=== PATIENT | female | born 2000 | race Caucasian/White ===

== ENCOUNTER 2019-01-10 10:56 | Emergency (ER) | payer OTHER ==
--- NOTE | 2019-01-10 11:26 | ED ---
Lower Extremity - HPI Summary HPI Summary: Pt. is a 18 y.o female who presents to the ER for a right knee injury that occurred yesterday. Pt. states she was practicing taekwondo yesterday and twisted right knee and fell. Able to ambulate with pain. Symptoms are mild in severity. Denies associated sxs of numbness, tingling or weakness. - History of Current Complaint Chief Complaint: EDExtremityLower Stated Complaint: RT KNEE INJURY PER PT Time Seen by Provider: 01/10/19 11:24 Hx Obtained From: Patient Pain Intensity: 4 - Allergies/Home Medications Allergies/Adverse Reactions: Allergies Allergy/AdvReac Type Severity Reaction Status Date / Time No Known Allergies Allergy Verified 01/10/19 11:20 Home Medications: Home Medications NK [No Home Medications Reported] 01/10/19 [History Confirmed 01/10/19] PMH/Surg Hx/FS Hx/Imm Hx Previously Healthy: Yes Infectious Disease History: No Infectious Disease History: Denies: Traveled Outside the [place] in Last 30 Days - Family History Known Family History: Positive: Non-Contributory - Social History Occupation: Student Lives: Dormitory/Roommates Review of Systems Positive: Other - Right knee injury Skin: Negative Neurological: Negative Negative: Weakness, Paresthesia, Numbness All Other Systems Reviewed And Are Negative: Yes Physical Exam Triage Information Reviewed: Yes Vital Signs On Initial Exam: Initial Vitals Temp Pulse Resp BP Pulse Ox 98.8 F 76 18 127/84 99 01/10/19 11:08 01/10/19 11:08 01/10/19 11:08 01/10/19 11:08 01/10/19 11:08 Vital Signs Reviewed: Yes Appearance: Positive: Well-Appearing - Pt. sitting in chair in NAD. Skin: Positive: Warm, Dry Head/Face: Positive: Normal Head/Face Inspection Eyes: Positive: Normal, EOMI Neck: Positive: Supple Musculoskeletal: Positive: Other - Small medial effusion to right knee. No increase in laxity. Good pedial pulse. No proximal or distal injuries. No breaks in the skin. Neurological: Positive: Normal, CN Intact II-III Psychiatric: Positive: Affect/Mood Appropriate Procedures - Splinting Right Lower Extremity Pre-Made Type: knee immobilizer Pre-Proc Neuro Vasc Exam: normal Post-Proc Neuro Vasc Exam: normal Diagnostics - Vital Signs Vital Signs Temp Pulse Resp BP Pulse Ox 01/10/19 11:08 98.8 F 76 18 127/84 99 - Laboratory Lab Statement: Any lab studies that have been ordered have been reviewed, and results considered in the medical decision making process. Lower Extremity Course/Dx - Course Course Of Treatment: Patient presenting for at least isolated knee injury. X- rays per radiology are negative for acute findings. Given patient's pain and twisting injury, Will place in knee immobilizer and crutches. To ice and elevate. Will follow-up with orthopedics for further evaluation of pain persists. Tylenol or Motrin for pain as directed. Activity as tolerated. Patient understands and agrees with plan. - Diagnoses Differential Diagnosis/HQI/PQRI: Positive: Fracture (Closed), Sprain, Strain Provider Diagnoses: Knee sprain Discharge - Sign-Out/Discharge Documenting (check all that apply): Patient Departure Patient Received Moderate/Deep Sedation with Procedure: No - Discharge Plan Condition: Good Disposition: HOME Patient Education Materials: Knee Sprain (ED) Referrals: [facility] [Outside] Landon Simons MD [Medical Doctor] - Additional Instructions: Schedule a follow up appointment with [facility] and orthopedics if pain persist for further evaluation Use immobilizer and crutches Ice and elevate intermittently Ibuprofen for pain as directed Activity as tolerated Return to ER if symptoms change or worsen - Billing Disposition and Condition Condition: GOOD Disposition: Home
[2019-01-10 12:43] VITALS: BP 104/69
== END 2019-01-10 12:42 | disposition home or self-care (01) ==
LOC: ED 10:56
DX: S83.91XA Sprain of unspecified site of right knee, initial encounter (principal); Y93.75 Activity, martial arts
CPT/HCPCS: 99282

== ENCOUNTER 2019-07-08 03:13 | Emergency (ER) | payer BC ==
[2019-07-08] MEDS ORDERED: predniSONE TAB* 20 MG PO ONE (03:54)
[2019-07-08] MEDS ORDERED: Albuterol 0.5% CONC NEB.SOL* 5 MG/ML 20 ml BOT INH ONE (03:54)
--- NOTE | 2019-07-08 03:56 | ED ---
Shortness of Breath - HPI Summary HPI Summary: This patient is a 18 year old F presenting to [facility] with a chief complaint of SOB since 07/07/18. Pt reports she previously had trouble breathing two weeks ago, but it only lasted about a day. Pt used her friends inhaler which relieved her symptoms. Then it reoccurred on 07/07/18. She reports she was at a tournament and she just sat around in a gym all day. The SOB worsens with physical activity and with deep breaths. Patient reports cough with phlegm. Patient denies fever, abdominal pain, nausea, vomiting, loss of appetite. Pt has PMHx of asthma. - History of Current Complaint Chief Complaint: EDShortnessOfBreath Time Seen by Provider: 07/08/19 03:47 Hx Obtained From: Patient Onset/Duration: Gradual Onset, Still Present Timing: Intermittent Episodes Lasting: Dyspnea At: Rest Aggravating Factors: Deep Breaths Alleviating Factors: Bronchodilators Associated Signs & Symptoms: Cough (Productive) - Allergy/Home Medications Allergies/Adverse Reactions: Allergies Allergy/AdvReac Type Severity Reaction Status Date / Time No Known Allergies Allergy Verified 01/10/19 11:20 PMH/Surg Hx/FS Hx/Imm Hx Respiratory History: Reports: Hx Asthma Sensory History: Denies: Hx Legally Blind, Hx Deafness Opthamlomology History: Denies: Hx Legally Blind EENT History: Denies: Hx Deafness - Surgical History Surgery Procedure, Year, and Place: ACL injury - Immunization History Date of Tetanus Vaccine: utd Date of Influenza Vaccine: fall 2017 Infectious Disease History: No Infectious Disease History: Denies: Traveled Outside the [place] in Last 30 Days - Family History Known Family History: Positive: Other - [place], [place] - Social History Alcohol Use: Rare Substance Use Type: Reports: None Smoking Status (MU): Never Smoked Tobacco Review of Systems Negative: Fever, Other - loss of appetite Positive: Shortness Of Breath, Cough Negative: Abdominal Pain, Vomiting, Nausea All Other Systems Reviewed And Are Negative: Yes Physical Exam - Summary Physical Exam Summary: Appearance: Well-appearing, Well-nourished, lying in bed comfortably Skin: Warm, dry, no obvious rash Eyes: sclera anicteric, no conjunctival pallor ENT: mucous membranes moist, pharynx appears normal Neck: Supple, nontender Respiratory: pt appears tachypnic, her inspiratory phase is impaired her expiratory phase is prolonged on forced expiration with diffuse associated wheezing Cardiovascular: Normal S1, S2. No murmurs. Normal distal pulses in tibial and radial bilaterally. Abdomen: Soft, nontender, normal active bowel sounds present Musculoskeletal: Normal, Strength/ROM Intact Neurological: A&Ox3, awake and alert, mentation is normal, speech is fluent and appropriate Psychiatric: affect is normal, does not appear anxious or depressed Triage Information Reviewed: Yes Vital Signs On Initial Exam: Initial Vitals Temp Pulse Resp BP Pulse Ox 97.5 F 113 18 126/91 90 07/08/19 03:14 07/08/19 03:14 07/08/19 03:14 07/08/19 03:14 07/08/19 03:14 Vital Signs Reviewed: Yes Procedures - Sedation Patient Received Moderate/Deep Sedation with Procedure: No Diagnostics - Vital Signs Vital Signs Temp Pulse Resp BP Pulse Ox 07/08/19 03:37 84 20 131/78 90 07/08/19 03:36 17 07/08/19 03:14 97.5 F 113 18 126/91 90 - Laboratory Result Diagrams: 07/08/19 04:06 07/08/19 04:06 Lab Statement: Any lab studies that have been ordered have been reviewed, and results considered in the medical decision making process. - Radiology CXR Radiology Interpretation Completed By: ED Physician Summary of Radiographic Findings: CXR reveals, per ED physician, no acute processes. Pending official radiology report. - EKG 0320 Cardiac Rate: NL EKG Rhythm: Sinus Rhythm Summary of EKG Findings: EKG at 0320 reveals NSR at 85 BPM, P waves, QRS complex , and T waves are within normal limits, T waves and intervals are normal, no ischemic changes. This is a normal EKG. ED Physician has reviewed and interpreted this EKG. Re-Evaluation - Re-Evaluation First Eval Re-Evaluation Time: 06:15 Comment: Discussed results and plan of care with pt. Course/Dx - Course Course Of Treatment: This patient is a 18 year old F presenting to [facility] with a chief complaint of SOB since 07/07/18. Pt reports she previously had trouble breathing two weeks ago, but it only lasted about a day. Pt used her friends inhaler which relieved her symptoms. Then it reoccurred on 07/07/18. She reports she was at a tournament and she just sat around in a gym all day. The SOB worsens with physical activity and with deep breaths. Patient reports cough with phlegm. Patient denies fever, abdominal pain, nausea, vomiting, loss of appetite. Pt has PMHx of asthma. Pt appears tachypnic, her inspiratory phase is impaired her expiratory phase is prolonged on forced expiration with diffuse associated wheezing. Blood work obtained. WBC is 11.4, and Glucose is 123. UA obtained. CXR reveals, per ED physician, no acute processes. Pending official radiology report. EKG at 0320 reveals NSR at 85 BPM, P waves, QRS complex, and T waves are within normal limits, T waves and intervals are normal, no ischemic changes. This is a normal EKG. In the ED course the patient was given albuterol , and deltasone. Patient improved on this therapy with marked improvement in aeration, though she still has mild end expiratory wheezing, and will be discharged. The patient is agreeable with this plan. - Diagnoses Provider Diagnoses: Asthma exacerbation, Bronchitis Discharge ED - Sign-Out/Discharge Documenting (check all that apply): Patient Departure - Discharge - Discharge Plan Condition: Good Disposition: HOME Prescriptions: Albuterol HFA INHALER* [Ventolin HFA Inhaler*] 2 puff INH Q4H PRN #1 mdi PRN Reason: Wheezing predniSONE TAB* [Deltasone 20 MG TAB*] 40 mg PO DAILY 5 Days #10 tab Patient Education Materials: Asthma (ED), Acute Bronchitis (ED) Referrals: [facility] [Outside] - If Needed - Billing Disposition and Condition Condition: GOOD Disposition: Home - Attestation Statements Document Initiated by Beverley: Yes Documenting Scribe: Nayla Arreguin Provider For Whom Beverley is Documenting (Include Credential): Murtaza Dumont MD Scribe Attestation: Nayla Villalpando scribed for Murtaza Dumont MD on 07/09/19 at 0330. Scribe Documentation Reviewed: Yes Provider Attestation: The documentation as recorded by the Nayla curry accurately reflects the service I personally performed and the decisions made by me, Murtaza Dumont MD Status of Scribe Document: Viewed
[2019-07-08 04:12] LABS: ABS Basophils 0.1 10^3/ul (0-0.2); ABS Lymphocytes 2.6 10^3/ul (1.0-4.8); ABS Monocytes 0.7 10^3/ul (0-0.8); Eosinophil % 9.1 %; Hematocrit 41 % (35-47); Hemoglobin 13.8 g/dL (12.0-16.0); Lymphocyte % 22.6 %; Mean Corpuscular HGB Conc 34 g/dL (31-36); Mean Corpuscular Hemoglobin 28 pg (27-31); Mean Corpuscular Volume 84 fL (80-97); Mean Platelet Volume 8.9 fL (7.4-10.4); Platelet Count 269 10^3/uL (150-450); Red Blood Count 4.87 10^6 /uL (3.70-4.87); Red Cell Distribution Width 13 % (10-15); White Blood Count 11.4 10^3/uL (3.5-10.8)
[2019-07-08 04:30] LABS: Albumin 4.5 g/dL (3.2-5.2); Albumin/Globulin Ratio 1.7 (1-3); BUN/Creatinine Ratio 15.5 (8-20); Calcium 10.3 mg/dL (8.6-10.3); EGFR African American 105.7 (>60); EGFR Non-African American 87.3 (>60); Globulin 2.7 g/dL (2-4); Potassium 4.2 mmol/L (3.5-5.0); Total Bilirubin 0.5 mg/dL (0.2-1.0); Total Protein 7.2 g/dL (6.4-8.9)
[2019-07-08 06:18] VITALS: BP 117/63
== END 2019-07-08 06:26 | disposition home or self-care (01) ==
LOC: ED 03:13
DX: J45.901 Unspecified asthma with (acute) exacerbation (principal); I49.9 Cardiac arrhythmia, unspecified
CPT/HCPCS: 36415; 71046; 80053; 85025; 85379; 93005; 99283; J7512; J7611

== ENCOUNTER 2019-07-18 03:33 | Emergency (ER) | payer BC ==
[2019-07-18] MEDS ORDERED: Albuterol/Ipratropium NEB.SOL* Albuterol 2.5 MG/Ipratropium 0.5 MG 3 ML INH ONE ×2 (03:47→04:42)
--- NOTE | 2019-07-18 04:05 | ED ---
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 No fever, nausea. Symptoms aggravated by nothing. Symptoms alleviated by nothing. Hx of asthma. States she had similar episode 1.5 weeks ago, was seen in the ED, dx asthma exacerbation and bronchitis, given rx prednisone and Albuterol inhaler which she has been taking minimal relief. Has not tried taking any other medications. LNMP 06/19/19. No smoking, alcohol, drugs. - History of Current Complaint Chief Complaint: EDShortnessOfBreath Stated Complaint: SOB PER PT Time Seen by Provider: 07/18/19 04:02 Hx Obtained From: Patient Onset/Duration: Lasting Days - 1, Still Present Timing: Constant Aggravating Symptoms: Nothing Alleviating Symptoms: Nothing Associated Signs and Symptoms: Positive: Negative - fever, nausea - Allergy/Home Medications Allergies/Adverse Reactions: Allergies Allergy/AdvReac Type Severity Reaction Status Date / Time No Known Allergies Allergy Verified 07/18/19 03:41 PMH/Surg Hx/FS Hx/Imm Hx Respiratory History: Reports: Hx Asthma Sensory History: Denies: Hx Legally Blind, Hx Deafness Opthamlomology History: Denies: Hx Legally Blind - Surgical History Surgery Procedure, Year, and Place: ACL repair 04/14/19 - Immunization History Date of Tetanus Vaccine: utd Date of Influenza Vaccine: fall 2017 Infectious Disease History: No Infectious Disease History: Denies: Traveled Outside the [place] in Last 30 Days - Family History Known Family History: Positive: Cardiac Disease - [place], Other - [place] - Social History Alcohol Use: None Substance Use Type: Reports: None Smoking Status (MU): Never Smoked Tobacco Review of Systems Negative: Fever Positive: Shortness Of Breath, Cough, Other - wheezing Negative: Nausea All Other Systems Reviewed And Are Negative: Yes Physical Exam - Summary Physical Exam Summary: General: Thin FEMALE. No significant distress upon arrival. HEENT: Normocephalic, Atraumatic. Eyes: Conjuctiva normal, PERRL. Ears: TMs within normal limits. Nares: (-) discharge, (-) erythema. Oropharynx: Clear, mucous membranes moist, (-) exudates. Neck: Soft, FROM, (-) lymphadenopathy, (-) thyromegaly, (-) JVD. Cardiovascular: Normal sinus rhythm, (-) murmur. Lungs: She had fair air exchange with mild tight wheezing throughout Abdomen: Soft, non-tender, non-distended, (-) organomegaly, normal bowel sounds. Back: (-) CVA tenderness Extremities: No edema. Skin: Warm, dry, (-) rash. Neuro: Alert and oriented x3, no focal deficits. Psychiatric: Mood normal, affect normal. Triage Information Reviewed: Yes Vital Signs On Initial Exam: Initial Vitals Temp Pulse Resp BP Pulse Ox 97.9 F 104 25 168/92 94 07/18/19 03:34 07/18/19 03:34 07/18/19 03:34 07/18/19 03:34 07/18/19 03:34 Vital Signs Reviewed: Yes Procedures - Sedation Patient Received Moderate/Deep Sedation with Procedure: No Diagnostics - Vital Signs Vital Signs Temp Pulse Resp BP Pulse Ox 07/18/19 03:54 94 18 99 07/18/19 03:34 97.9 F 104 25 168/92 94 - Laboratory Lab Statement: Any lab studies that have been ordered have been reviewed, and results considered in the medical decision making process. Re-Evaluation - Re-Evaluation First Eval Re-Evaluation Time: 05:02 Change: Improved Comment: I have discussed results with the patient and sx have resolved after breathing treatments. Will start patient on steroids. Discussed symptoms that warrant immediate return to ED. Asthma Course/Dx - Course Course Of Treatment: 18-year-old female presenting with shortness of breath and wheezing. Asthma exacerbation. She had similar symptoms last week and was seen here. States her albuterol inhaler at home was not helping. Patient had significant relief after 2 nebulizer treatments. Started on a short burst of steroids. Continue albuterol inhaler as needed. Follow-up with PCP. Follow up sooner for any worsening symptoms. - Diagnoses Provider Diagnoses: Asthma exacerbation Discharge ED - Sign-Out/Discharge Documenting (check all that apply): Patient Departure - Discharge - Discharge Plan Condition: Stable Disposition: HOME Prescriptions: predniSONE [Prednisone 20 MG TAB] 40 mg PO DAILY 5 Days #10 tablet Patient Education Materials: Asthma (ED) Referrals: [facility] [Provider Group] - 3 Days Additional Instructions: Please follow up with [facility] within 3 days. Please return to Emergency Department for any new or worsening symptoms - Billing Disposition and Condition Condition: STABLE Disposition: Home - Attestation Statements Document Initiated by Scribe: Yes Documenting Scribe: Lauryn Merrill Provider For Whom Scribe is Documenting (Include Credential): Nola Julien MD Scribe Attestation: ILauryn, scribed for Nola Julien MD on 07/18/19 at 0515. Scribe Documentation Reviewed: Yes Provider Attestation: The documentation as recorded by the scribeLauryn accurately reflects the service I personally performed and the decisions made by me, Nola Julien MD Status of Scribe Document: Viewed
[2019-07-18] MEDS ORDERED: predniSONE TAB* 20 MG PO ONE (05:00)
[2019-07-18 05:10] VITALS: BP 123/70
== END 2019-07-18 05:10 | disposition home or self-care (01) ==
LOC: ED 03:33
DX: J45.901 Unspecified asthma with (acute) exacerbation (principal)
CPT/HCPCS: 99283; A9270-GY; J7512

== ENCOUNTER 2019-07-18 07:19 | Observation (INO) | payer BC ==
[2019-07-18] MEDS ORDERED: methylPREDNISolone 125 MG* 2 ML VIAL ONE (07:24)
[2019-07-18] MEDS ORDERED: NS 0.9% 1000 ML** 1,000 ML IV ONE (07:25)
[2019-07-18] MEDS ORDERED: methylPREDNISolone 125 MG* 2 ML VIAL IV ONE (07:26)
[2019-07-18] MEDS ORDERED: Magnesium Sulfate 2 GM IV* 2 GM/50 ML BAG IVPB ONE (07:37)
--- NOTE | 2019-07-18 07:39 | ED ---
Shortness of Breath - HPI Summary HPI Summary: Patient is a 18 y/o F presenting to the ED via EMS for a chief complaint of shortness of breath. On EMS arrival at [facility], patient was wheezing and was in respiratory distress. Patient was given 3 A+A nebs, a dose of EpiPen IM and given a CPAP treatment which patient is receiving on arrival to the ED. Patient is complaining of chest pain with chest tightness, productive cough, and abdominal pain. Patient states the shortness of breath has improved with the CPAP treatment, but the pain she is reporting has remained at the same intensity. Patient also states the wheezing has resolved. Patient denies calf pain, calf swelling, nausea, or vomiting. Patient was previously seen at [facility] approximately [address] Nola Julien for asthma exacerbation. Pt was given 2 nebs and 40mg prednisone at this time. Patients symptoms resolved before being discharged but states returned after walking stairs to her dorm. Pt with h/o recent bronchitis and has been using MDI. pt states several years ago was treated at ED for similar sx. Denies tobacco, denies inhalants, no vaping. Not . Patient denies any recent travel, tobacco use, or e- cigarette use. Allergies noted. Patients medication reviewed this visit. - History of Current Complaint Chief Complaint: EDShortnessOfBreath Time Seen by Provider: 07/18/19 07:23 Hx Obtained From: Patient, EMS, Medical Records Onset/Duration: Sudden Onset, Still Present Timing: Constant Current Severity: Moderate Dyspnea At: Rest Aggravating Factors: Nothing Alleviating Factors: Oxygen - Improvement with CPAP Associated Signs & Symptoms: Cough (Productive), Wheezing - Resolved, Chest Pain w/Cough Related History: Similar Episode - 3 hours ago - Allergy/Home Medications Allergies/Adverse Reactions: Allergies Allergy/AdvReac Type Severity Reaction Status Date / Time No Known Allergies Allergy Verified 07/18/19 07:33 Home Medications: Home Medications Tretinoin 0.1 % TOPICAL BEDTIME 07/18/19 [History Confirmed 07/18/19] PMH/Surg Hx/FS Hx/Imm Hx Previously Healthy: Yes Respiratory History: Reports: Hx Asthma Sensory History: Denies: Hx Legally Blind, Hx Deafness Opthamlomology History: Denies: Hx Legally Blind EENT History: Denies: Hx Deafness - Surgical History Surgical History: Yes Surgery Procedure, Year, and Place: ACL repair 04/14/19 - Immunization History Date of Tetanus Vaccine: utd Date of Influenza Vaccine: fall 2017 Infectious Disease History: No Infectious Disease History: Denies: Traveled Outside the [place] in Last 30 Days - Family History Known Family History: Positive: Cardiac Disease - [place], Other - [place], Non- Contributory - Social History Occupation: Student Lives: Dormitory/Roommates Alcohol Use: None Hx Substance Use: No Substance Use Type: Reports: None Hx Tobacco Use: No Smoking Status (MU): Never Smoked Tobacco Review of Systems Positive: Chest Pain - With chest tightness Positive: Shortness Of Breath, Cough - Productive, Other - Positive wheezing, since resolved Positive: Abdominal Pain. Negative: Vomiting, Nausea Positive: Decreased ROM. Negative: Myalgia - Negative calf pain, Edema - Negative calf swelling All Other Systems Reviewed And Are Negative: Yes Physical Exam - Summary Physical Exam Summary: Vital Signs Reviewed: Yes A+Ox3, anxious Eyes: Conjunctiva Clear, MARYANA. EOM intact and full ENT: Hearing grossly normal TM x 2 clear, mmoist, uvula midline, no exudate, no erythema Neck: Positive: Supple Respiratory: Positive: increased RR, supraclavicular retraction, + scattered exp wheeze, no rhonchi, speaking short sentences. Cardiovascular: RRR tachy nl s1, s2 no m/r CBT <2 sec, mild epigastric discomfort with deep palp abd soft + BS nt/nd no guarding, no distension Musculoskeletal Exam: COLEMAN x 4 without difficulty Strength Intact, ROM Intact Neurological: Positive: Alert, + sensation throughout, slighlty tremulous s/p a /a x 3, epi Psychological: Positive: Normal Response To personal consultant Skin: Positive: no rash, no ecchymosis Triage Information Reviewed: Yes Vital Signs On Initial Exam: Initial Vitals Temp Pulse Resp BP Pulse Ox 97.3 F 123 23 122/97 92 07/18/19 07:26 07/18/19 07:26 07/18/19 07:26 07/18/19 07:26 07/18/19 07:26 Procedures - Sedation Patient Received Moderate/Deep Sedation with Procedure: No Diagnostics - Vital Signs Vital Signs Temp Pulse Resp BP Pulse Ox 07/18/19 07:26 97.3 F 123 23 122/97 92 - Laboratory Result Diagrams: 07/19/19 09:02 07/19/19 09:02 Lab Statement: Any lab studies that have been ordered have been reviewed, and results considered in the medical decision making process. - Radiology Chest X-ray Radiology Interpretation Completed By: Radiologist Summary of Radiographic Findings: Chest X-ray IMPRESSION: NO EVIDENCE FOR ACTIVE CARDIOPULMONARY DISEASE. Reviewed by ED physician. - CT Chest/Thorax CTA CT Interpretation Completed By: Radiologist Summary of CT Findings: Chest/Thorax CTA IMPRESSION: 1. LIMITED EVALUATION SECONDARY TO PATIENT BREATHING MOTION. 2. THERE IS NO APPRECIABLE PULMONARY ARTERIAL FILLING DEFECT TO SUGGEST PULMONARY EMBOLISM. 3. PULMONARY ARTERY IS LARGER THAN THE AORTA AT THE SAME LEVEL SUGGESTIVE OF PULMONARY ARTERIAL HYPERTENSION. Reviewed by ED physician. - EKG 07:45 Cardiac Rate: Bradycardia - 109 BPM EKG Rhythm: Sinus Bradycardia ST Segment: Normal Ectopy: None Summary of EKG Findings: EKG at 07:45 reveals 109 BPM with sinus tachycardia, no STEMI, inverted T3 and Q3. Reviewed and interpreted by ED physician. Re-Evaluation - Re-Evaluation First Re-Evaluation Time: 08:18 Change: Improved Comment: At 08:18, patient is improved. I spoke with pt's father per her request - updated - aware wiill likely obv - states pt has had similar episodes of bronchospasm in past - states she typically has component of anxiety associated with sx - expressed appreciation of call - ED contact info provided. Offered her my cell phone if she needed to call somebody. Second Re-Evaluation Time: 08:45 Change: Unchanged Comment: At 08:45, patient has increased sense of difficulty breathing. Pt will be given Ativan - slightly anxious, few scattered wheeze. VSS. Will order CTA - ? PE - ddimer pending at lab Third Re-Evaluation Time: 08:48 Change: Unchanged Comment: At 08:48 - spoek with lab re ddimer Fourth Re-Evaluation Time: 09:02 Change: Unchanged Comment: At 09:02, pt wiht little improvedment following ativan -order placed for xoponex. Pt continues with mild exp wheeze. increased RR, HR, continues on vapotherm Fifth Re-Evaluation Time: 09:44 Change: Improved Comment: At 09:44, chest tightness is gone, patient does not feel shaky. much improved with xoponex - awiting CTA Sixth Re-Evaluation Time: 10:44 Change: Unchanged Comment: At 10:44, patient denied contacting her father by cell phone. She will communicate with her father via laptop. reviewed CT scan pt much improved following xoponex. will admit - d/w hispitalist Course/Dx - Course Course Of Treatment: Pt presents with bronchospasm - pt given duo neb x 3, subcut epi and CPAP by EMS - pt treated in ED a few hours prior with asthma exa , received nebs pred 40mg. pt reports sx improved, still feels hard to breath. vital reviewed. ot with supraclavicular retractions, scattered ex wheeze. will try vapotherm. solumedrol 60mg. magnesium. cxr. labs. ivf. close reassessment. Pt request contact father - window dresser in [facility] - provided cell # - Diagnoses Provider Diagnoses: Dyspnea, Bronchospasm - Physician Notifications Discussed Care of Patient With: Chun Godfrey Time Discussed With Above Provider: 07:56 - At 07:56, I spoke to the patients father, Dr. Chun Godfrey, who is a window dresser. Dr. Chun Godfrey phone number: [phone]. At 08:48, something happened with the agent and they are trying to find the D-dimer. At 09:12, I spoke with Dr. Patricia Cooney, hospitalist, who will admit the patient for a diagnosis of dyspnea. - Critical Care Time Critical Care Time: 30-74 min - 30 min Discharge ED - Sign-Out/Discharge Documenting (check all that apply): Patient Departure - Admit - Discharge Plan Condition: Good Disposition: ADMITTED TO [facility] - Billing Disposition and Condition Condition: GOOD Disposition: Admitted to [facility] - Attestation Statements Document Initiated by Scribe: Yes Documenting Scribe: Izzy Little Provider For Whom Scribe is Documenting (Include Credential): Wilda Manuel MD Scribe Attestation: IIzzy, scribed for Wilda Manuel MD on 07/22/19 at 0805. Scribe Documentation Reviewed: Yes Provider Attestation: The documentation as recorded by the scribeIzzy accurately reflects the service I personally performed and the decisions made by me, Wilda Manuel MD Status of Scribe Document: Viewed
[2019-07-18 07:52] LABS: ABS Eosinophils 0.7 10^3/ul (0-0.6); ABS Monocytes 0.5 10^3/ul (0-0.8); ABS Neutrophils 11.2 10^3/ul (1.5-7.7); Eosinophil % 5.3 %; Hematocrit 41 % (35-47); Hemoglobin 13.9 g/dL (12.0-16.0); Lymphocyte % 7.6 %; Mean Corpuscular HGB Conc 34 g/dL (31-36); Mean Corpuscular Hemoglobin 29 pg (27-31); Mean Corpuscular Volume 84 fL (80-97); Platelet Count 225 10^3/uL (150-450); Red Blood Count 4.88 10^6 /uL (3.70-4.87); Red Cell Distribution Width 13 % (10-15); White Blood Count 13.4 10^3/uL (3.5-10.8)
[2019-07-18 08:09] LABS: Albumin 4.4 g/dL (3.2-5.2); Albumin/Globulin Ratio 1.8 (1-3); BUN/Creatinine Ratio 15.4 (8-20); Calcium 9.3 mg/dL (8.6-10.3); EGFR African American 115.1 (>60); EGFR Non-African American 95.1 (>60); Globulin 2.4 g/dL (2-4); Potassium 3.8 mmol/L (3.5-5.0); Total Bilirubin 0.5 mg/dL (0.2-1.0); Total Protein 6.8 g/dL (6.4-8.9)
[2019-07-18] MEDS ORDERED: LORazepam INJ* 2 MG/ML 1 ML VIAL IV PUSH ONE (08:46)
[2019-07-18] MEDS ORDERED: Lorazepam PYXIS KEY ONE (08:46)
[2019-07-18] MEDS ORDERED: Lorazepam PYXIS KEY PRN (08:46)
[2019-07-18] MEDS ORDERED: LORazepam INJ* 2 MG/ML 1 ML VIAL ONE (08:47)
[2019-07-18] MEDS: NS 0.9% 1000 ML** 1,000 ML IV ONE ×2 (08:50→12:05)
[2019-07-18 08:57] LABS: Magnesium 2.8 mg/dL (1.9-2.7)
[2019-07-18] MEDS ORDERED: Iohexol 350* (CONTRAST) 500 ML MDV IV ONE (09:01)
[2019-07-18] MEDS ORDERED: Levalbuterol 1.25MG/0.5ML NEB INH ONE (09:01)
[2019-07-18] MEDS ORDERED: Acetaminophen TAB* 325 MG PO PRN (10:31)
[2019-07-18] MEDS ORDERED: Albuterol HFA INHALER* 8 gm MDI INH PRN (10:33)
[2019-07-18] MEDS ORDERED: Levalbuterol 0.63MG/3ML NEB* UNIT OF USE INH PRN ×2 (10:34→13:07)
[2019-07-18] MEDS ORDERED: Ipratropium 0.5MG/2.5ML NEB* 0.5 MG/2.5 ML NEB.SOLN INH PRN ×2 (10:47→13:07)
[2019-07-18] MEDS ORDERED: Azithromycin TAB* 250 MG PO ONE (11:22)
[2019-07-18] MEDS ORDERED: Levalbuterol 1.25MG/0.5ML NEB ONE (13:15)
--- NOTE | 2019-07-18 13:57 | HP ---
CC: [facility] * HISTORY AND PHYSICAL: DATE OF ADMISSION: 07/18/19 PRIMARY CARE PROVIDER: [facility]. ATTENDING PHYSICIAN WHILE IN THE HOSPITAL: Dr. Patricia Cooney * (dictated by Radha Bonilla NP). CHIEF COMPLAINT: Shortness of breath. HISTORY OF PRESENT ILLNESS: Ms. Fountain is a 18-year-old female with past medical history significant for asthma, who presented to the emergency room with complaints of shortness of breath. The patient initially presented this morning at approximately 3 a.m., was given albuterol nebulizers and steroids and sent home. The patient returned to the emergency room at 7 a.m. with progressively worsening shortness of breath. The patient reports that she returned home. She walked to her house and then up the stairs and became significantly short of breath, so she was brought back to the emergency room for further evaluation. The patient reports that she has had a cough for approximately 3 weeks and approximately 10 days ago she started with an upper respiratory tract infection, increased shortness of breath, and worsening cough , productive with yellow and green sputum that was thick. The patient reports that the cough has become progressively worse over the past 10 days and the shortness of breath was coming and going, but it has been significantly worse since Tuesday at 2 p.m. While in the emergency room, the patient did have routine lab work drawn. She was found to have leukocytosis with WBCs of 13.4. She was tachycardic with a heart rate in the one-teens and tachypneic with respirations 26 to 28. She was given Xopenex nebulizer, Solu-Medrol 60 mg IV. In addition, the patient did have prednisone 40 mg at 5 a.m. and patient was also given epi by EMS en route to the emergency room as well as nebulizer. She also required Vapotherm while in the emergency room, which she has now improved and is only requiring 4 L via face mask and is able to maintain O2 saturations at 99%, her breathing is less labored at this time. Due to her progressively worsening shortness of breath and second presentation for asthma exacerbation, Hospital Medicine was asked to evaluate her for admission. PAST MEDICAL HISTORY: Asthma and acne. PAST SURGICAL HISTORY: Right ACL repair. HOME MEDICATIONS: 1. Retinol-A acne cream topically daily. 2. Other medication albuterol inhaler, reports it was prescribed to her 10 days ago. ALLERGIES: No known drug allergies. FAMILY HISTORY: Maternal grandfather with a history of an [place], no reported history of diabetes. Father with bladder cancer history. SOCIAL HISTORY: Denies any tobacco, alcohol, or illicit drug use. 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 Surrogate decision maker in the event she is unable to make her own decisions is her father; his name is Dallas Rhodes. She is a full code. REVIEW OF SYSTEMS: The patient denies any fevers, chills, unintended weight loss, chest pain or edema. She does report cough that is productive with thick green yellow sputum and progressively worsening shortness of breath x10 days. Denies any nausea, vomiting, diarrhea, abdominal pain, hematuria or dysuria. Denies any focal weakness or sensory loss, dysphagia, arthralgias, myalgias, rashes, lesions, open sores, psychosis or anxiety. She denies any use of vaping material. PHYSICAL EXAMINATION GENERAL: At this time, Ms. Fountain is a 18-year-old female. She is resting comfortably on the stretcher in the emergency room. She is in no acute respiratory distress at this time. She is able to speak in full sentences. VITAL SIGNS: Blood pressure 126/81, heart rate is 97, respirations are 24, O2 saturation 94% on 4 L nasal cannula. HEENT: Head is atraumatic, normocephalic. Eyes: EOMs are intact. Sclerae anicteric, not pale. Oral mucosa appeared to be moist. NECK: Supple. LUNGS: Clear , but diminished throughout bilaterally. There are no wheezes or rhonchi. CARDIAC: S1 and S2. Regular rate and rhythm. No murmurs, rubs or gallops. ABDOMEN: Soft and nontender. Bowel sounds are present x4. EXTREMITIES: She is able to move all 4 extremities. There is no clubbing or cyanosis. NEUROLOGIC: She is awake, alert and oriented x3. Speech is clear. Thought process is intact. There are no gross focal deficits. SKIN: Intact. DIAGNOSTIC STUDIES/LAB DATA: WBCs are 13.4, RBCs 4.88, hemoglobin 13.9, hematocrit was 41, platelet count was 225. D-dimer was 273. ABG: She had a pH of 7.44, pCO2 was 31, pO2 was 118, HCO3 was 23.3 and O2 saturation was 99%. BMP: Sodium was 138, potassium 3.8, chloride 105, carbon dioxide 26, anion gap was 7, BUN was 12, creatinine 0.78, glucose was 157, calcium was 9.3, magnesium 2.8, ASTs were 15, ALTs were 9. Alkaline phosphatase was 69. She had a chest x-ray which showed no active cardiopulmonary disease. She had a CTA of the chest, which showed limited evaluation secondary to the patient's breathing motion. There is no appreciable pulmonary arterial filling defect to suggest pulmonary embolism. Pulmonary artery is larger than the aorta at the same level suggestive of pulmonary arterial hypertension. She had an electrocardiogram that showed sinus tachycardia at a rate of 109. ASSESSMENT AND PLAN: Ms. Fountain is 18-year-old female with past medical history of asthma, who presented to the emergency room with progressively worsening shortness of breath and cough x10 days. She will be admitted for: 1. Asthma exacerbation. The patient appears to be having an exacerbation of her asthma, was found to have tachypnea and tachycardia. She did receive breathing treatments in the emergency room and epinephrine en route by EMS as well as Solu- Medrol 60 mg IV. With improvement of her symptoms at this time, her respirations are easy and even. Her O2 has been titrated down from high flow Vapotherm to 4 L via facemask and she is tolerating well without any issue. Given the patient's 3- week history of cough and congestion, i will place her on azithromycin as this is her second exacerbation within 10 days and progressively worsening cough and shortness of breath. We will place her on Xopenex and Atrovent nebulizers as needed and we will continue her albuterol inhaler as needed for shortness of breath and continue prednisone 40 mg p.o. daily x5 days. 2. Leukocytosis. The patient does have leukocytosis, I suspect this is related to inflammatory response from her asthma exacerbation and receiving steroids. The patient does not appear septic or infectious at this time. We will continue to monitor her. Though she is tachycardic and tachypneic with an elevated white count meeting sepsis criteria, the patient does not appear to be septic at this time. Her tachycardia and tachypnea is likely related to her asthma exacerbation nebulizers and she was given epinephrine enroute to the hospital by EMS. I will continue with nebulizers and steroids to treat her asthma exacerbation. 3. FEN. She can have regular diet. 4. Code status is full code. 5. DVT prophylaxis, I will encourage ambulation. TIME SPENT: Time spent on this admission was 60 minutes. Greater than half of that time was spent at the bedside reviewing the events leading thus far to her hospitalization, performing physical exam and reviewing my plan of care. I have discussed this with my attending Dr. Patricia Cooney; she is in agreement with my plan. RADHA BONILLA, NUTRITION SPECIALIST [id number]/[facility] #: [id number] JOSE MIGUEL
[2019-07-18] MEDS ORDERED: Levalbuterol 1.25MG/0.5ML NEB INH SCH (15:00)
[2019-07-18] MEDS: Levalbuterol 1.25MG/0.5ML NEB INH PRN (17:21)
[2019-07-18] MEDS: TRETINOIN 0.1% TOPICAL SCH (20:44)
[2019-07-19] MEDS: Levalbuterol 1.25MG/0.5ML NEB INH PRN ×2 (00:18→04:44)
[2019-07-19 09:19] LABS: ABS Basophils 0.1 10^3/ul (0-0.2); ABS Eosinophils 1.6 10^3/ul (0-0.6); ABS Lymphocytes 2.7 10^3/ul (1.0-4.8); ABS Monocytes 0.8 10^3/ul (0-0.8); ABS Neutrophils 5.9 10^3/ul (1.5-7.7); Eosinophil % 14.5 %; Hematocrit 39 % (35-47); Hemoglobin 13.3 g/dL (12.0-16.0); Lymphocyte % 24.4 %; Mean Corpuscular HGB Conc 34 g/dL (31-36); Mean Corpuscular Hemoglobin 29 pg (27-31); Mean Corpuscular Volume 84 fL (80-97); Mean Platelet Volume 8.9 fL (7.4-10.4); Platelet Count 223 10^3/uL (150-450); Red Blood Count 4.66 10^6 /uL (3.70-4.87); Red Cell Distribution Width 14 % (10-15); White Blood Count 10.9 10^3/uL (3.5-10.8)
[2019-07-19 09:36] LABS: Calcium 9.4 mg/dL (8.6-10.3); EGFR African American 120.5 (>60); EGFR Non-African American 99.5 (>60); Potassium 3.7 mmol/L (3.5-5.0)
[2019-07-19] MEDS: predniSONE TAB* 20 MG PO SCH (09:53)
[2019-07-19] MEDS: Azithromycin TAB* 250 MG PO SCH (09:53)
--- NOTE | 2019-07-19 12:11 | PN ---
Subjective Date of Service: 07/19/19 Interval History: Pt feels well, was on 02 , but on RA 02 sats were 95%. Unfortunately when she started walking she developed severe bronchospasm,with increased WOB and wheezing, 02 sats still 94% on RA Objective Active Medications: Acetaminophen (Tylenol Tab*) 650 mg PO Q4H PRN PRN Reason: MILD PAIN or TEMP > 100.4 Albuterol (Ventolin Hfa Inhaler*) 2 puff INH Q4H PRN PRN Reason: WHEEZING Azithromycin (Zithromax Tab*) 250 mg PO DAILY [facility] Last Admin: 07/19/19 09:53 Dose: 250 mg Ipratropium [place] (Atrovent 0.5 Mg Neb.Vannesa*) 0.5 mg INH Q4H PRN PRN Reason: SOB/WHEEZING Levalbuterol HCl (Xopenex 1.25 Mg/0.5 Ml Neb.Vannesa*) 1.25 mg INH Q4H PRN PRN Reason: SOB/WHEEZING Last Admin: 07/19/19 04:44 Dose: 1.25 mg Miscellaneous (Ativan Pyxis Lewis) 1 ea N/A .ATIVAN IV LEWIS PRN PRN Reason: PYXIS LEWIS Nft *Tretinoin 0.1% (Cream*) 1 dose TOPICAL BEDTIME [facility]; Protocol Last Admin: 07/18/19 20:44 Dose: Not Given Prednisone (Deltasone Tab*) 40 mg PO DAILY [facility] Last Admin: 07/19/19 09:53 Dose: 40 mg Vital Signs - 8 hr 07/19/19 07/19/19 08:05 11:37 Temperature 98.5 F 98.2 F Pulse Rate 80 76 Respiratory 16 20 Rate Blood Pressure 101/51 112/55 (mmHg) O2 Sat by Pulse 95 100 Oximetry Oxygen Devices in Use Now: Nasal Cannula Appearance: 18 yo F in NAD, AAOx3 Eyes: No Scleral Icterus, PERRLA Ears/Nose/Mouth/Throat: NL Teeth, Lips, Gums, Mucous Membranes Moist Neck: NL Appearance and Movements; NL JVP, Trachea Midline Respiratory: Symmetrical Chest Expansion and Respiratory Effort, - - after exercise pt was noted to have diffuse upper lung wheezes and increased wOB Cardiovascular: NL Sounds; No Murmurs; No JVD, RRR, No Edema Abdominal: NL Sounds; No Tenderness; No Distention Lymphatic: No Cervical Adenopathy Extremities: No Edema, No Clubbing, Cyanosis Skin: No Rash or Ulcers Neurological: Alert and Oriented x 3, NL Muscle Strength and Tone Result Diagrams: 07/19/19 09:02 07/19/19 09:02 Assess/Plan/Problems-Billing Assessment: 18 yo F with h/o childhood asthma has had problems with cough and wheezing x 3 weeks, 10 days ago was on Prednisone x5 days total - Patient Problems (1) Asthma exacerbation Comment: cont steroids and Azithro CTA neg Due to wheezing and increased WOB whith walking will monitor and treat for one more day (2) DVT prophylaxis Comment: ambulation Status and Disposition: OBV
[2019-07-19] MEDS: TRETINOIN 0.1% TOPICAL SCH (20:10)
[2019-07-20] MEDS: Levalbuterol 1.25MG/0.5ML NEB INH PRN (03:03)
[2019-07-20 09:12] VITALS: BP 103/68
[2019-07-20] MEDS: predniSONE TAB* 20 MG PO SCH (09:52)
[2019-07-20] MEDS: Azithromycin TAB* 250 MG PO SCH (09:52)
--- NOTE | 2019-07-20 13:45 | DS ---
CC: Primary Care Provider, [facility] * DISCHARGE SUMMARY: DATE OF ADMISSION: 07/18/19 DATE OF DISCHARGE: 07/20/19 PRIMARY CARE PROVIDER: [facility]. DISPOSITION AT DISCHARGE: Home. CONDITION ON DISCHARGE: Stable. DISCHARGE DIAGNOSES: 1. Acute bronchitis. 2. Acute asthma exacerbation. MEDICATIONS AT DISCHARGE: Include: 1. Albuterol inhaler 1-2 puffs every 4 hours p.r.n. 2. Albuterol nebulizer 2.5 mg 1 nebulizer every 4 hours p.r.n., do not use concurrently with albuterol inhaler. 3. Advair 250/50 one inhalation b.i.d. 4. Azithromycin 250 mg daily for a total of 3 days, to complete full course that was started during the hospital stay. 5. Prednisone taper 40 mg for 2 days, then 20 mg for 2 days, then 10 mg for 2 days and then stop. 6. Topical tretinoin cream as perviously used. LABORATORY DATA AND STUDIES PERFORMED DURING HOSPITAL STAY: On 07/19/19, white blood cell count of 10.9, hemoglobin of 13.3, hematocrit of 39, platelets of 123. D-dimer was 227 on admission. ABG showed pH of 7.44, PCO2 of 31, PO2 of 118, bicarb of 23. On 07/19/19, sodium of 141, potassium 3.7, chloride 109, carbon dioxide 25, BUN 9, creatinine 0.75. Please also note that on CBC differential the patient had mild eosinophilia with eosinophil count of 1.6. CT angiogram of the chest obtained on 07/18/19. Impression: "Limited evaluation secondary to the patient's breathing motion. There was no appreciable pulmonary arterial filling defect to suggest pulmonary a embolism. 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 Two weeks ago, she was prescribed a 5-day taper of prednisone. She presented to the hospital on 07/18/19 initially on her own during the day time with shortness of breath and wheezing. She received a dose of Solu- Medrol and was sent home on albuterol inhaler. When she was trying to walk up the stairs, she developed severe bronchospasm and was brought right back in to the hospital. At that point, she required Vapotherm during her ED stay. She required BiPAP during her ambulance transfer. She was able to be quickly weaned off high level of oxygen and within several hours her hypoxemia resolved. She received albuterol nebulizer treatment as well as parenteral steroids. She was started on azithromycin. CT angiogram of the chest was obtained, which showed widened pulmonary artery but no evidence of PE. Throughout the patient's hospital stay, she continued on to wheeze whenever she would cough or with exercise. Her eosinophil level was increased and possibility of an allergic reaction was considered. Nevertheless, we continued azithromycin treatment. By the time of discharge, her oxygen saturation is 94% on room air, but when ambulating she drops to 93. She still wheezes and it appears that her wheezes increase when she ambulates. At discharge, the patient is recommended to perform no strenuous exercise and to use albuterol inhaler before she walks up the stairs. She apparently lives on the second floor of her dorm. She is being discharged on prednisone taper and continuation of azithromycin treatment, to follow up with her primary care provider at [facility] in approximately 2 to 5 days. PHYSICAL EXAMINATION: At the time of discharge, blood pressure 103/68, heart rate of 68, respiratory rate 17, oxygen saturation 98% on room air, temperature 97.8. General: The patient is a pleasant 18-year-old female who is in no acute distress. Alert, awake, oriented x3. HEENT: Head atraumatic, normocephalic. Eyes: Pupils equal and reactive to light and accommodation. Oropharynx clear. Mucosa moist. Neck: Supple. No JVD, no bruits bilaterally. Cardiovascular: Regular rate and rhythm. No murmur. Respiratory: Coarse, mild rhonchi and wheezes in bilateral upper lung taylor. Abdomen: Soft, nontender. Bowel sounds present in all 4 quadrants. Extremities: There is no edema. Pulses are +2 bilaterally. No clubbing or cyanosis. Neuro evaluation: Speech is clear. Cranial nerves II through XII grossly intact. Motor strength is 5/5 bilaterally . Please note this is a short summary of the patient's hospital stay, please refer to further medical records for details. Please also note that the patient was recommended to followup with an hematology specialist or electric meter technician after discharge. TIME SPENT: Approximately 35 minutes was spent on the patient's discharge. [id number]/[facility] #: [id number] JOSE MIGUEL
== END 2019-07-20 15:59 | disposition home or self-care (01) ==
LOC: ED 07:19 → MED 10:31
PROVIDERS: ADMIT Internal Medicine; ATTEND Internal Medicine
DX: J20.9 Acute bronchitis, unspecified (principal); J45.901 Unspecified asthma with (acute) exacerbation; Z79.899 Other long term (current) drug therapy; D72.829 Elevated white blood cell count, unspecified
CPT/HCPCS: 36415; 71045; 71275; 80048; 80053; 82803; 83735; 85025; 85379; 93005; 96365; 96375; 99284; A9270-GY; G0378; J2060; J2930; J7512; Q9967